=== PATIENT | female | born 1970 | race African-American/Black ===

== ENCOUNTER 2017-02-10 17:15 | Emergency (ER) | payer SELFPAY ==
[~2017-02-10] VITALS: Ht 165.1 cm; Wt 87.3 kg
[~2017-02-10 17:15] MED LIST: AMLODIPINE BESYL5 MG PO; MOTRIN800 MG PO; PERCOCET 5/31 TABLET PO; TORADOL10 MG PO; VICODIN,LORT1 TABLET PO
[2017-02-10] MEDS ORDERED: MOTRIN800 MG PO (21:04)
[2017-02-10] MEDS ORDERED: NORCO 7.5/321 TABLET PO (21:04)
[2017-02-10 21:42] VITALS: BP 117/74
== END 2017-02-10 21:43 | disposition home or self-care (01) ==
LOC: EME 17:15
DX: S86.211A Strain of muscle(s) and tendon(s) of anterior muscle group at lower leg level, right leg, initial encounter (principal); F17.200 Nicotine dependence, unspecified, uncomplicated
CPT/HCPCS: 93971; 99281; 99283

== ENCOUNTER 2018-05-07 09:02 | Day surgery (SDC) | payer OTHER ==
[~2018-05-07] VITALS: Ht 162.6 cm; Wt 89.8 kg
[~2018-05-07 09:02] MED LIST changes: +CLARITIN10 M3 PO; +NORCO 7.5/321 TABLET PO
[2018-05-07 09:50] VITALS: BP 115/71
[2018-05-07 10:05] LABS: BASOPHIL (%) 0.3 % (0-1); EOSINOPHIL (%) 0.4 % (0-5); EOSINOPHIL COUNT 0.1 K/uL (0-0.3); HEMATOCRIT 37.4 % (36.0-46.0); HEMOGLOBIN 12.3 G/DL (11.9-15.5); IMMATURE GRANULOCYTE (%) 0.4 % (0.0-0.7); LYMPHOCYTE (%) 21.2 % (15-42); LYMPHOCYTE COUNT 2.4 K/uL (1.0-2.8); MCH 27.2 PG (29.0-34.0); MCHC 32.9 G/DL (30.0-36.0); MCV 82.6 FL (83-99); MONOCYTE (%) 7.4 % (3-12); MONOCYTE COUNT 0.8 K/uL (0-0.8); NEUTROPHIL (%) 70.3 % (45-76); NEUTROPHIL COUNT 7.9 K/uL (1.8-6.4); PLATELET COUNT 165 K/uL (156-360); RBC DIS.WIDTH-CV 14.2 % (11.8-14.6); RBC DIS.WIDTH-SD 42.2 % (39-53); RED BLOOD COUNT 4.53 M/uL (3.80-5.20); WHITE BLOOD COUNT 11.3 K/uL (4.1-10.2)
[2018-05-07 10:31] LABS: CHLORIDE 106 MEQ/L (99-109); CREATININE 0.9 MG/DL (0.6-1.3); GFR ESTIMATE (CALCULATED) > 59 mL/min/; GLUCOSE 86 mg/dL (70-99); POTASSIUM 4.3 MEQ/L (3.7-5.4); SODIUM 138 MEQ/L (136-147); UREA NITROGEN (BUN) 10 mg/dL (9-23)
[2018-05-07] MEDS ORDERED: MOTRIN800 MG PO (13:19)
[2018-05-07] MEDS ORDERED: NORCO 5/3251 TABLET PO (13:19)
[2018-05-07] MEDS ORDERED: AUGMENTIN875 MG PO (13:33)
[2018-05-07 14:00] VITALS: BP 144/66
[2018-05-07 14:54] VITALS: BP 124/81
== END 2018-05-07 15:30 | disposition home or self-care (01) ==
LOC: SDC 09:02
PROVIDERS: Obstetrics & Gynecology
PROC: 0U9M0ZZ Drainage of Vulva, Open Approach (ICD-10-PCS; principal; 2018-05-07)
DX: N76.4 Abscess of vulva (principal); I10 Essential (primary) hypertension; F17.200 Nicotine dependence, unspecified, uncomplicated
CPT/HCPCS: 80048; 85025; 87070; 87075; 87077; 87186; 87205; 93005; J0330; J0690; J1100; J1885; J2250; J2405; J3010